=== PATIENT | male | born 1950 | race Caucasian/White ===

== ENCOUNTER → 2021-09-23 | Outpatient (CLI) | payer MEDICARE ==
--- NOTE | 2021-09-25 09:13 | CT ---
EXAMINATION TYPE: CT abdomen pelvis wo con DATE OF EXAM: 09/23/2021 COMPARISON: None HISTORY: 70-year-old male N20.[address] DLP: 567.60 mGycm. Automated exposure control for dose reduction was used. TECHNIQUE: Contiguous axial scanning of the abdomen and pelvis without IV contrast. Coronal and sagit irma reconstructions performed. FINDINGS: Heart normal size without pericardial effusion. Mitral annular calcifications are demonstrated. Tiny calcified granuloma right base. No pleural effusion. Lack of IV contrast and some strandy edematous change throughout the subcutaneous adipose layer and i ntra-abdominal fat limits evaluation. There is a small hiatal hernia. There are postsurgical changes just below the GE junction that may re late to Linda-en-Y gastric bypass but this requires further clinical correlation. Unable to exclude scattered mild wall thickening throughout jejunal loops. Some mottled debris is pre sent within some of the jejunal loops, for example, axial image 51. Noncontrast appearance of the liver shows no gross abnormality. Gallbladder not visualized, probably surgically absent. Some punctate calcifications at the pancreatic head level. There is some areas of calcification at th e level of the pancreatic tail with slightly bulbous configuration measuring 3.6 x 2.6 cm. This may r eflect tortuous splenic artery. Unable to entirely exclude partially calcified lobulated mass of the pancreatic tail. Follow-up is recommended. Adrenal glands and spleen show no gross abnormality. There are approximately 7 nonobstructive left renal calculi, largest measuring 1 cm. There are approximately nonobstructive right renal calculi, largest measuring 9 mm. A 1.2 cm hypodensity lateral mid pole right kidney inadequately characterized. Reassess at follow-up. Axial image 56 and coronal image 64. No hydronephrosis is seen. Small fatty hernia. Moderate to large stool burden. No clear perisplenic inflammatory change. Bladder is urine distended. Small 4 mm dependent bladder calculus. Prostate gland is estimated at 5.4 cm wide with central prosthetic calcifications. Limited visualization of pelvic structures due to ex tensive streak and beam hardening artifact relating to the patient's bilateral total hip thoracoplast y is. Bones: Bilateral total hip arthroplasties. Osteitis pubis. Heterotopic ossification about the greater trochanters relating to the gluteal insertions. Hypertrophic facet arthropathy throughout the lumbar spine. Baastrup's disease. Degenerative grade 1 anterolisthesis L4-L5. Moderate to advanced degenerative disc disease L5-S1 and moderate at L2-L3. IMPRESSION: 1. Bilateral nonobstructive nephrolithiasis measuring up to 1 cm on the left and 9 mm on the right. Small 4 mm dependent bladder calculus. 2. A vague 1.2 cm hypodensity in the lateral right kidney mid pole is inadequately characterized. Ma y represent a small cyst. Three-month follow-up CT to exclude a small early mass. 3. Lobulated, partially calcified area at the pancreatic tail measuring 3.6 x 2.6 cm. This may refle ct an underlying tortuous splenic artery. Unable to entirely exclude a mass of the pancreatic tail th ough the former is favored. Recommend follow-up CT in 3 months utilizing IV contrast to further asses s. 4. Mild generalized anasarca change. Correlate for third spacing or fluid overload state. 5. Small hiatal hernia. Postsurgical changes below the GE junction likely relating to a Linda-en-Y ga stric bypass. Clinically correlate. 6. Mildly thickened jejunal loops. Consider enteritis. There may be some stasis given mottled debris within the jejunum versus a recent fiber food bolus. Clinically correlate. 7. Moderate to large stool burden, possible constipation. Clinically correlate.
== END | disposition home or self-care (01) ==
LOC: RADCTMAIN 15:13
PROVIDERS: ATTEND Urology
DX: N20.0 Calculus of kidney (principal); N21.0 Calculus in bladder; K86.89 Other specified diseases of pancreas; K59.89 Other specified functional intestinal disorders
CPT/HCPCS: 74176

== ENCOUNTER → 2022-08-25 | Outpatient (CLI) | payer MEDICARE ==
[2022-08-25 13:00] VITALS: BP 115/72; PULSE 77; RESP 18; TEMP 97.9
--- NOTE | 2022-08-25 14:40 | P.PAINPG ---
Objective - Vital Signs Vital signs: Vital Signs Temp 97.9 F 08/25/22 12:50 Pulse 77 08/25/22 12:50 Resp 18 08/25/22 12:50 BP 115/72 08/25/22 12:50 Pulse Ox 96 08/25/22 12:50 FiO2 PQRS Measure Charge Sheet Mode of Arrival: Ambulatory Comment: HISTORY OF PRESENT ILLNESS: 71 yr old as a referral from Dr Childress presents today w severe and chronic LBP secondary to DDD, spondylosis and facet arthropathy without myelopathy for evaluation. Pt states pain level is at /10 in intensity, constant, localized in the mid to lower lumbar spine, achy in character w shooting pain towards . Pain is provoked by over actrivity throughout the day. Pain is alleviated by PT years ago, chirproactic treatments x 1 yr 2 yrs ago, alternate heat & ice which were ineffective, meds (Ibu, Tyl), repositioning and rest. PMH: HTN, Hyperlipidemia, BPH, IDDM, Pancreatitis (1993) PSH: BL L3-L5 RFA (February 2022), LESIs (Jun 2022), CESIs (2018), RLE Fx (1965), Nephrolithiasis (1983), Strangulated Hernia Repair (2020) SH: Retired w experience. Negative x 3. FH: Non contributory All: NKDA Meds: See list REVIEW OF ORGAN SYSTEMS: CONSTITUTIONAL: No fevers or chills. No recent weight loss. NEUROLOGICAL: + numbness and tingling along the distal extremities. No seizure disorders or headaches. MUSCULOSKELETAL: + pain PSYCHIATRIC: Denies current depression or suicidal thoughts. Physical Examinations : Constitutional : Cooperative , not in acute distress . Neurologic : Cranial nerve II to XII intact. No focal neurological deficits. Psychiatric : alert & oriented x 3. Matching mood & appropriate affect. Judgment & insight intact. Musculoskeletal : Cervical Spine Motor strength in the deltoid and biceps: Normal right side. Normal Left side Motor strength biceps and the wrist extensors: Normal right side . Normal left side Motor strength in the triceps muscle: Normal right side. Normal left side Deep tendon reflexes: Normal at the biceps. Normal at Brachioradialis. Normal at triceps Vertebral body tenderness to deep palpation over Cervical facet loading test: positive bilaterally Spurling test: positive bilaterally Neck distraction test: positive bilaterally Ellie sign: positive bilaterally Lumbar spine Motor strength lower extremities ,thigh and legs 5/5 Right side , 5/5 Left side Deep tendon reflexes : Normal Knee Jerk. Normal Ankle Jerk Vertebral body tenderness over L4 Lumbar facet Loading Test: positive Right / positive Left Range of motion of the lumbar spine Flexion 30 degrees, extension 10 degrees Straight Leg Raise test: Left/ Right positive at degree Escobar test: positive right / positive left. Severe tenderness over the Sacroiliac joint on the Right / Left sides Gaenslen test: positive bilaterally Seated flexion test: positive bilaterally. Sacral spine : Severe tenderness over the Sacroiliac joint: right side / left side Range of motion: Flexion of the lumbar spine <60 degrees Range of motion: Extension of the lumbar spine <20 degrees Gaenslen's Test positive Casa's Test positive Escobar test: positive right side / left side Thigh Thrust Test Sacral Thrust Test Imaging: X-ray of the lumbosacral spine from 03/19/19 reviewed Assessment/ Plan : Lumbar DDD Need records from Dr Childress's office. Pt had an RFA in February 2022 so were under the strong belief that there is an MRI of the lumbar spine completed. Otherwise, recommendation of MRI without contrast of the lumbar spine re: M51.36 May return to clinic within 2 wks for a re evaluation. Risks, benefits of procedure discussed and patient verbalized understanding. Admits to aspirin or anti- coagulant use or medical history of diabetes. P rotocol for discontinuation/ continuation of medications oral procedure discussed. All questions answered. I have spent greater than 30 minutes on patient care today. Dr Malik was available by phone for the evaluation of this patient. The time was used to review the medical records including relevant urine studies and Prescription history (MAPs), review of the available imaging, evaluation and examination of the patient, coordination of care with the medical staff and if applicable referring physicians, as well as creation of the medical record - Pain Location Bilateral Lower Back Non-Pharmacological Interventions: Chiropractic Treatment, Heat, Ice, Inactivity, Massage, Physical Therapy, Position/Reposition Pharmacological Interventions: Block, Epidural, PRN Medication PQRS Narrative: Blood Pressure 115/72 Scale Used Numeric (1 - 10) Hx Alcohol Use (MH) No Controlled Substance Measures - Controlled Substance Measures Is patient prescribed a controlled substance at discharge?: No
== END ==
LOC: PNWHC3 11:56
PROVIDERS: ATTEND Specialist
DX: M51.36 Other intervertebral disc degeneration, lumbar region (principal); E11.9 Type 2 diabetes mellitus without complications; Z79.01 Long term (current) use of anticoagulants; Z79.4 Long term (current) use of insulin
CPT/HCPCS: 99211

== ENCOUNTER → 2022-09-24 | Outpatient (CLI) | payer MEDICARE | LOC: PNWHC3 12:45 | PROVIDERS: ATTEND Specialist | DX: M47.816 Spondylosis without myelopathy or radiculopathy, lumbar region (principal) | CPT/HCPCS: 99211 ==

== ENCOUNTER 2022-11-07 07:32 | Day surgery (SDC) | payer MEDICARE ==
[~2022-11-07 07:32] MED LIST: LACTATED RINGERS 1,000 ML IV SCH; LIDOCAINE 1% (10MG/ML) FOR IV START INTRADERMA PRN
[2022-11-07 08:05] VITALS: RESP 16
[2022-11-07 08:07] LABS: Glucose,Whole Blood 153 mg/dL (70-110)
[2022-11-07] MEDS ORDERED: fentaNYL (PF) 50 MCG/ML 2 ML AMP ONE (08:24)
[2022-11-07] MEDS ORDERED: MIDAZOLAM 2 MG/2 ML VIAL ONE (08:24)
--- NOTE | 2022-11-07 08:53 | P.PCN ---
Date of Procedure: 11/07/22 Procedure(s) Performed: PREOPERATIVE DIAGNOSIS: 1-Lumbar Spondylosis with Facet Arthropathy without myelopathy. 2- Lumber degenerative disc disease. POSTOPERATIVE DIAGNOSIS: 1- Lumbar Spondylosis with Facet Arthropathy without myelopathy. 2- Lumber degenerative disc disease. PROCEDURES :Bilateral Radiofrequency thermocoagulation, L3 , L4 , and L5 medial branch, with fluoroscopic guidance (fluoroscopy images available in the radiology department) ( to denervate the facet joint at bilateral L4-5 ,and L5-S1 levels ). ANESTHESIA: Monitored anesthesia care as per anesthesia department . EBL: Minimal PROCEDURE INDICATION: The patient with low back pain secondary to lumbar facet arthropathy who had more than 50% relief of her pain with previous diagnostic lumbar medial branch block with bupivacaine. PROCEDURE DESCRIPTION / TECHNIQUE: The patient was seen and identified in the preoperative area. Risks, benefits, complications, including but not limited to risk of infection ,bleeding , allergic reactions to the medications and no complete pain releife , and alternatives were discussed with the patient, the patient agreed to proceed with the procedure and signed the consent. IV was started. Vital signs remained stable throughout the procedure. Patient was taken to the OR and time out was completed. The patient was placed in the prone position on the procedure table. The lumber area was prepped and draped in the usual sterile fashion. . Vital signs were closely monitored during the procedure .IV sedation was used during the procedure to decrease patients anxiety. Using AP and then oblique fluoroscopy, the ``eye of the Juan Jose dog brandon esponding to the connection between the superior and transverse articular processes of right L3, L4, and L5 were identified, marked, and localized with 1% lidocaine. Subsequently, a [id number] radiofrequency cannula with a 10- mm active tip was advanced guided by fluoroscopy to each of the``eyes of the Juan Jose dog at right L3, L4, and L5. Each site then underwent sensory testing at 50 Hz and 0 to 1 volt and motor testing at 2.5 Hz and 0 to 3 volt with local stimulation, but no radicular symptoms down the legs. Thereafter each sites underwent radiofrequency thermocoagulation at 80 degrees celsius for 90 seconds after injecting 0.5 ml of PF Ropivacaine 1ml, then after the thermocoagulation done , 1 ml of the block solution containing Depo-Medrol 20 mg and 3 ml of Ropivacaine 0.5% was injected at the right L3 , L4 , and L5 , levels after negative aspiration of CSF and blood and with no paresthesias. Cannulas were retracted while injecting lidocaine 1% until the needle is out. The same procedure was repeated at the level of Left L3, L4, and L5 levels. At the end of the procedure, the skin was cleansed and bandages were applied. COMPLICATIONS: No acute complications. DISPOSITION / PLANS: The patient was placed in a supine position and transferred to the recovery area in a stable condition for observation and was discharged from the recovery room after meeting discharge criteria. Home discharge instructions given to the patient by the staff. The patient was reexamined prior to discharge. The patient will schedule a follow up in the clinic in 2-4 weeks.
--- NOTE | 2022-11-07 08:57 | FL ---
EXAMINATION TYPE: FL guided pain mgmt statistic DATE OF EXAM: 11/07/2022 CLINICAL HISTORY: Low back pain. TECHNIQUE: Fluoroscopy. COMPARISON: None. FINDINGS: Fluoroscopic guidance was provided during pain relief procedure performed by Dr. Malik . A total of 21 seconds of fluoroscopic time was utilized during the procedure and six spot images a re acquired. Images acquired shows needle localization at several levels in the lumbar spine. IMPRESSION: As Above.
[2022-11-07] MEDS ORDERED: IV FLUID CONTINUATION 1,000 ML IV ONE (08:58)
[2022-11-07 09:25] LABS: Glucose,Whole Blood 143 mg/dL (70-110)
[2022-11-07 09:39] VITALS: BP 92/33; PULSE 75
== END 2022-11-07 09:52 | disposition home or self-care (01) ==
LOC: ORPAIN 07:32
PROVIDERS: ATTEND Specialist
DX: M51.36 Other intervertebral disc degeneration, lumbar region (principal); M47.816 Spondylosis without myelopathy or radiculopathy, lumbar region; E78.5 Hyperlipidemia, unspecified; I10 Essential (primary) hypertension; E11.9 Type 2 diabetes mellitus without complications; N40.0 Benign prostatic hyperplasia without lower urinary tract symptoms; K21.9 Gastro-esophageal reflux disease without esophagitis; Z88.6 Allergy status to analgesic agent; Z88.5 Allergy status to narcotic agent; Z79.84 Long term (current) use of oral hypoglycemic drugs; Z79.4 Long term (current) use of insulin; Z79.899 Other long term (current) drug therapy
CPT/HCPCS: 64635; 64636 ×2; J2250; J3010

== ENCOUNTER → 2023-01-27 | Outpatient (CLI) | payer MEDICARE ==
[2023-01-27 16:17] LABS: African American GFR (CKD) 63.6 (60.0-200.0); BUN/Creat Ratio 19.62 Ratio (12.00-20.00); Blood Urea Nitrogen 25.5 mg/dL (9.0-27.0); Calcium 9.3 mg/dL (8.7-10.3); Non-African American GFR(CKD) 54.9 (60.0-200.0)
[2023-01-27 16:28] LABS: Basophils # (A) 0.01 X 10*3/uL (0.00-0.10); Basophils % (A) 0.1 %; Eosinophils # (A) 0.04 X 10*3/uL (0.04-0.35); Eosinophils % (A) 0.5 %; HCT 37.5 % (39.6-50.0); HGB 11.8 g/dL (13.0-17.0); Immature Grans, Automated 0.5 %; Lymphocytes # (A) 1.21 X 10*3/uL (0.90-5.00); Lymphocytes % (A) 15.9 %; MCH 31.6 pg (27.0-32.0); MCHC 31.5 g/dL (32.0-37.0); MCV 100.5 fL (80.0-97.0); Mean Platelet Volume 9.5 fL (9.5-12.2); Monocytes # (A) 0.39 X 10*3/uL (0.20-1.00); Monocytes % (A) 5.1 %; NRBC Per 100 WBC 0 /100 WBCS (0.0-0.0); Neutrophils # (A) 5.91 X 10*3/uL (1.80-7.70); Neutrophils % (A) 77.9 %; Platelet Count 287 X 10*3/uL (140-440); RBC 3.73 X 10*6/uL (4.40-5.60); RDW 13.5 % (11.5-14.5)
== END | disposition home or self-care (01) ==
LOC: LABPAT 10:45
PROVIDERS: ATTEND Urology
DX: Z01.812 Encounter for preprocedural laboratory examination (principal); N20.0 Calculus of kidney; N20.1 Calculus of ureter
CPT/HCPCS: 80048; 85025

== ENCOUNTER 2023-02-05 05:47 | Day surgery (SDC) | payer MEDICARE ==
[2023-01-29 09:52] VITALS: BMI 28.1
--- NOTE | 2023-02-04 21:16 | P.GSHP ---
History of Present Illness H&P Date: 02/04/23 Chief Complaint: Left flank pain The patient is a 72-year-old white male with a history of calcium oxalate monohydrate urolithiasis. 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 The following month, he was admitted with left hydronephrosis due to a 9 mm left proximal ureteral calculus. Multiple right renal calculi measuring up to 8 mm in size were seen. Urine and blood cultures showed Staphylococcus, and he was treated with antibiotics. He now comes for ureteroscopic removal of his calculi. - Genitourinary (Male) Genitourinary: Reports flank pain, Reports kidney stones Past Medical History Past Medical History: Diabetes Mellitus, GERD/Reflux, Hyperlipidemia, Hypertension, Osteoarthritis (OA), Prostate Disorder Additional Past Medical History / Comment(s): seasonal allergies, hx of pancreatitis from cholecystitis, hx c-diff 2020., ddd with low back pain, anemia., kidney stones. History of Any Multi-Drug Resistant Organisms: None Reported Date of last positivie culture/infection: 2020 MDRO Source:: stool Past Surgical History: Cholecystectomy, Joint Replacement Additional Past Surgical History / Comment(s): bilateral total hips, right total knee, left shoulder replaced., incisional hernia repair ., left cataract, hernia mesh removed and replaced., pain procedures for back pain., cystoscopy with left ureteral stent. Past Anesthesia/Blood Transfusion Reactions: Postoperative Nausea & Vomiting (PONV) Additional Past Anesthesia/Blood Transfusion Reaction / Comment(s): morphine, demerol, opiates cause nausea/vomiting Past Psychological History: No Psychological Hx Reported Smoking Status: Former smoker Past Alcohol Use History: None Reported Additional Past Alcohol Use History / Comment(s): smoked years ago for short time while in the service. Past Drug Use History: None Reported - Past Family History Mother Family Medical History: CVA/TIA, Myocardial Infarction ([place]) Additional Family Medical History / Comment(s): smoker Father Family Medical History: Cancer Additional Family Medical History / Comment(s): leukemia Medications and Allergies Home Medications Medication Instructions Recorded Confirmed Type Dapagliflozin Propanediol [Farxiga] 5 mg PO DAILY 11/04/22 01/29/23 History Rosuvastatin Calcium 10 mg PO DAILY 11/04/22 01/29/23 History Semaglutide [Rybelsus] 7 mg PO DAILY 11/04/22 01/29/23 History Tamsulosin [Flomax] 0.4 mg PO HS 11/04/22 01/29/23 History lisinopriL [Zestril] 5 mg PO DAILY 11/04/22 01/29/23 History Atomoxetine HCl [Strattera] 60 mg PO DAILY 12/19/22 01/29/23 History Ferrous Sulfate [Iron (65 MG 325 mg PO DAILY 12/19/22 01/29/23 History Elemental)] Fish Oil(Unknown Dose) 1 cap PO DAILY 12/19/22 01/29/23 History Vitamin D(Unknown Dose) 1 tab PO DAILY 12/19/22 01/29/23 History Vitamin E(Unknown Dose) 1 tab PO DAILY 12/19/22 01/29/23 History Acetaminophen Tab [Tylenol] 650 mg PO Q6HR PRN tab 12/21/22 01/29/23 Rx Calcium (Unknown Dose) 1 dose PO DAILY 01/29/23 History INSULIN LISPRO (For Pump) [humaLOG 0 units SQ-PUMP CONTINUOUS 01/29/23 01/29/23 History (For Pump)] Ketorolac [Toradol] 10 mg PO Q6HR PRN 01/29/23 01/29/23 History Pediatric Multivitamin No.30 1 tab PO DAILY 01/29/23 01/29/23 History [Multivitamin Children's Gummies] Testosterone 1 dose IM Q15D 01/29/23 History Vitamin B (Unknown Dose) 1 dose PO DAILY 01/29/23 History Vitamin C (Unknown Dose) 1 dose PO DAILY 01/29/23 History Vitamin C/Biotin [Hair, Skin and 1 tab PO DAILY 01/29/23 01/29/23 History Nails Chew] Allergies Allergy/AdvReac Type Severity Reaction Status Date / Time codeine Allergy Itching Verified 01/29/23 08:54 indomethacin [From Indocin] Allergy very Verified 01/29/23 08:54 anxious felt like he was dying naproxen [From Naprosyn] Allergy renal Verified 01/29/23 08:54 bleeding Surgical - Exam - General well developed, well nourished, no distress - Respiratory normal respiratory effort - Abdomen Abdomen: soft, non tender, no guarding, no rigid, no rebound - Genitourinary normal penis with no external lesions, testicles non-tender - Psychiatric oriented to time, oriented to person, oriented to place, speech is normal, memory intact Results - Imaging CT scan - abdomen: report reviewed, image reviewed Assessment and Plan Assessment: The patient has a large left proximal ureteral calculus as well as right renal calculi. Alternative treatment options were reviewed with him. He has elected to undergo ureteroscopic removal of this calculi. (1) Ureteral stone with hydronephrosis Status: Acute Code(s): N13.2 - HYDRONEPHROSIS WITH RENAL AND URETERAL CALCULOUS OBSTRUCTION SNOMED Code(s): 54612249 (2) Calculus of ureter Status: Acute Code(s): N20.1 - CALCULUS OF URETER SNOMED Code(s): 06399332 (3) Calculus of kidney Status: Acute Code(s): N20.0 - CALCULUS OF KIDNEY SNOMED Code(s): 46600198 Plan: Cystoscopy, left ureteral stent removal, bilateral ureteroscopy with Holmium laser lithotripsy and stone basketing, right ureteral stent insertion, possible left ureteral stent replacement. The procedure has been reviewed in detail with the patient. He has been made aware of potential risks, which include anesthesia, bleeding, infection, ureteral injury, and inability to successfully remove the calculi. He is aware of the possible need for a secondary procedure.
[~2023-02-05 05:47] MED LIST changes: -LIDOCAINE 1% (10MG/ML) FOR IV START INTRADERMA PRN; +ONDANSETRON 4 MG/2 ML VIAL IVP ONE
--- NOTE | 2023-02-05 06:30 | XR ---
EXAMINATION TYPE: XR KUB DATE OF EXAM: 02/05/2023 6:12 AM CLINICAL HISTORY: Bilateral renal calculi. TECHNIQUE: Two supine KUB images of the abdomen are obtained. COMPARISON: CT abdomen and pelvis December 19, 2022. FINDINGS: Multiple small right renal calculi arms less well-seen as obscured by overlying bowel gas. There is new double-J left ureteral stent. There is progression of 11 mm calculus now within distal u reter over the left pelvis. Metallic hardware from bilateral hip surgery is partially imaged. Surgical clips epigastric region re demonstrated. IMPRESSION: As above.
[2023-02-05] MEDS ORDERED: HYDROmorphone 0.5 MG/0.5 ML SYRINGE IVP PRN (07:00)
[2023-02-05] MEDS ORDERED: fentaNYL (PF) 50 MCG/ML 2 ML AMP IV PRN (07:00)
[2023-02-05 07:04] LABS: Glucose,Whole Blood 180 mg/dL (70-110)
[2023-02-05] MEDS ORDERED: ONDANSETRON 4 MG/2 ML VIAL ONE (07:42)
[2023-02-05] MEDS ORDERED: LIDOCAINE 2% INJ 20 MG/ML (2 ML VIAL) ONE (07:42)
[2023-02-05] MEDS ORDERED: HYDROmorphone (PF) 1 MG/ML ONE (07:42)
[2023-02-05] MEDS ORDERED: MIDAZOLAM 2 MG/2 ML VIAL ONE (07:42)
[2023-02-05] MEDS ORDERED: PROPOFOL 10 MG/ML 20 ML VIAL IV ONE (07:42)
[2023-02-05] MEDS ORDERED: PHENYLEPHRINE-0.9% NACL SYG 1,000 MCG/10 ML SYRINGE ONE (07:42)
[2023-02-05] MEDS ORDERED: ACETAMINOPHEN IV (For NPO) 1,000 MG/100 ML VIAL ONE (07:42)
[2023-02-05] MEDS ORDERED: ROCURONIUM 10 MG/ML (5 ML VIAL) IV ONE (07:42)
[2023-02-05] MEDS ORDERED: NEOSTIGMINE 1 MG/ML 10 ML VIAL ONE (07:42)
[2023-02-05] MEDS ORDERED: ePHEDrine 50 MG/ML 1 ML VIAL ONE (07:42)
[2023-02-05] MEDS ORDERED: SUCCINYLCHOLINE CHLORIDE 200 MG/10 ML VIAL IV ONE (07:42)
[2023-02-05] MEDS ORDERED: VASOPRESSIN 20 UNIT/ML 1 ML VIAL ONE (07:42)
[2023-02-05] MEDS ORDERED: KETOROLAC 15 MG/ML 1 ML VIAL ONE (07:42)
[2023-02-05] MEDS ORDERED: LACTATED RINGERS 1,000 ML IV ONE ×2 (09:01→11:17)
[2023-02-05 10:33] VITALS: TEMP 98.2
[2023-02-05 10:49] LABS: Glucose,Whole Blood 215 mg/dL (70-110)
[2023-02-05 11:36] VITALS: RESP 20
--- NOTE | 2023-02-05 11:40 | FL ---
Fluoroscopy History: Removal of calculi Christian renal calculi, removal left stent, right stent placed. 22 sec fl. 2.2168 DAP
[2023-02-05 13:15] VITALS: BP 112/70; PULSE 68
--- NOTE | 2023-02-08 20:33 | P.OP ---
Date of Procedure: 02/08/23 Preoperative Diagnosis: Left ureteral calculus, right renal calculi Postoperative Diagnosis: Same Procedure(s) Performed: Cystoscopy, left ureteral stent removal, bilateral ureteroscopy with Holmium laser lithotripsy and stone basketing, right ureteral stent insertion Anesthesia: ALBANIAA Surgeon: Ilya Christianson Estimated Blood Loss (ml): 10 IV fluids (ml): 1,700 Pathology: other (Calculus fragments, sent for chemical analysis) Condition: stable Disposition: PACU Indications for Procedure: The patient is a 72-year-old white male with a history of calcium oxalate monohydrate urolithiasis. 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 The following month, he was admitted with left hydronephrosis due to a 9 mm left proximal ureteral calculus. Multiple right renal calculi measuring up to 8 mm in size were seen. Urine and blood cultures showed Staphylococcus, and he was treated with antibiotics. A left ureteral stent was placed. He now comes for ureteroscopic removal of his calculi. Operative Findings: Left distal ureteral calculus, fragmented and removed completely. Multiple right renal calculi, fragmented and removed. Description of Procedure: The patient was taken to the operating room and placed in the dorsolithotomy position, with legs supported in Roosevelt stirrups. The external genitalia was prepped and draped sterilely. The urethra would not accommodate the 21-Guyanese Mosley cystoscopic sheath, so [place] sounds were used to dilate the fossa navicularis stricture. The 30 lens was then used to introduce the 21-Guyanese Mosley cystoscopic sheath through the urethra and into the bladder under direct vision. The prostatic urethra showed evidence of mild lateral lobe enlargement. The bladder was examined in its entirety. No abnormalities were seen. Grasping forceps were used to grasp the distal end of the left ureteral stent, which was removed along with the cystoscope. The Mosley semirigid ureteroscope was advanced into the bladder, and the left ureteral orifice was cannulated. The ureteroscope was slowly advanced up to the calculus. A 272 holmium laser probe was passed through the ureteroscope, and lithotripsy was performed. Initially, a dusting mode was utilized. Ultimately, the calculus fragmented and calculus fragments were removed using a 0 tip 1.5- Guyanese nitinol basket. All calculus fragments were removed. Inspection of the ureter showed no residual calculus fragments, and no evidence of ureteral trauma. The cystoscope was replaced into the bladder. A 0.038 inch Glidewire was passed through the cystoscope. The right ureteral orifice was cannulated, and the Glidewire was advanced up to the renal pelvis. The cystoscope was removed, and an 11/13-Guyanese ureteral access catheter was passed over the wire, up to the proximal ureter. The flexible ureteroscope was then passed through the ureteral access catheter sheath and advanced under direct vision up to the right renal pelvis. Each calyx was examined. Calculi were seen in multiple calyces. The 272 micron Holmium laser probe was passed through the ureteroscope, and lithotripsy was performed. All visible calculi were fragmented, largely utilizing a dusting mode. Several small calculi were identified within a lower pole calyx, and these were removed using the nitinol basket. Pullout ureteroscopy showed no evidence of ureteral trauma. The Glidewire was advanced up to the right renal pelvis, and after removing the ureteroscope the Glidewire was backloaded into the cystoscope, which was passed into the bladder. A 26 cm, 6-Guyanese double-J ureteral stent was placed over the wire. Proper stent positioning was verified fluoroscopically and endoscopically. The bladder was emptied and the cystoscope removed. The patient tolerated the procedure well and was taken to the recovery room in stable condition. [facility] [place] [employer] Report: Procedure Acuity: Elective Stone Size and Location: 1 cm, left distal ureter. Multiple right renal calculi measuring up to 8 mm. Ureteral Dilation: No Ureteral Access Sheath Used: Yes Stone Sent for Analysis: Yes All Stones/Fragments Were Removed with a Basket: No Complications: No Preoperative Antibiotics Given: Yes Stent Placed: Yes If Stent Placed, Was String Left Attached: No If Stent Placed, When is it to be Removed: 2-3 weeks Discharge Medications: Toradol, tamsulosin
== END 2023-02-05 13:30 | disposition home or self-care (01) ==
LOC: OR 05:47
PROVIDERS: ATTEND Urology
DX: N20.2 Calculus of kidney with calculus of ureter (principal); E11.9 Type 2 diabetes mellitus without complications; K21.9 Gastro-esophageal reflux disease without esophagitis; E78.5 Hyperlipidemia, unspecified; I10 Essential (primary) hypertension; M19.90 Unspecified osteoarthritis, unspecified site; Z90.49 Acquired absence of other specified parts of digestive tract; Z96.60 Presence of unspecified orthopedic joint implant; Z87.891 Personal history of nicotine dependence; Z82.49 Family history of ischemic heart disease and other diseases of the circulatory system; Z79.84 Long term (current) use of oral hypoglycemic drugs; Z79.1 Long term (current) use of non-steroidal anti-inflammatories (NSAID); Z88.5 Allergy status to narcotic agent; Z79.899 Other long term (current) drug therapy
CPT/HCPCS: 82365; 74018; 52356; C2625; C1769; J2250; J0330; J2710; J0690; J2405; J1170; J0131; J1885; J2370; J2704; J2001

== ENCOUNTER → 2023-03-06 | Outpatient (CLI) | payer MEDICARE ==
--- NOTE | 2023-03-06 11:25 | US ---
EXAMINATION TYPE: US kidneys/renal and bladder DATE OF EXAM: 03/06/2023 COMPARISON: CT dated 12/19/2022. Abdominal x-ray February 05, 2023 CLINICAL INDICATION: Male, 72 years old with history of N13.2 HYDRONEPHROSIS; History of renal stones . EXAM MEASUREMENTS: Right Kidney: 12.1 x 5.5 x 5.7 cm Left Kidney: 10.7 x 5.9 x 6.0 cm Right Kidney: Two stones seen lower pole one measures 1.3 x 0.9 x 0.9 cm and the second measures 0.9 x 0.9 x 1.1 cm. Complex area midpole measures 3.1 x 3.6 x 2.6 cm. Left Kidney: Not well visualized, no hydronephrosis seen. Bladder: Layering sediment noted. Bilateral Jets seen: No Few right-sided renal calculi seen on ultrasound. More numerous right-sided renal calculi noted on re cent CT. There is thin walled cyst or cystic lesion that is not completely anechoic measuring 3.6 cm long axis midpole level of right kidney. Corresponding abnormality not clearly seen on noncontrast CT . No left-sided hydronephrosis on current study. Urinary bladder not completely anechoic IMPRESSION: No Hydronephrosis is evident bilaterally on current study.
== END | disposition home or self-care (01) ==
LOC: RADUSWWP 10:13
PROVIDERS: ATTEND Urology
DX: N13.2 Hydronephrosis with renal and ureteral calculous obstruction (principal)
CPT/HCPCS: 76770

== ENCOUNTER → 2023-11-13 | Outpatient (CLI) | payer MEDICARE ==
--- NOTE | 2023-11-13 13:35 | XR ---
EXAMINATION TYPE: XR KUB DATE OF EXAM: 11/13/2023 Comparison: 02/05/2023 Clinical History: 73-year-old male N20.0 CALCULUS OF KIDNEY Findings: Lung bases are clear. Gassy bowel in the midabdomen with a caliber up to 5.8 cm, suspected to represent tortuous colon. The re is moderate to large stool elsewhere throughout the colon. No dilated small bowel loops are seen. Surgical material throughout the abdomen. 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 Supine imaging limited for assessment of free air. Impression: 1. Gassy colon with moderate to large stool. No convincing findings of bowel obstruction. 2. Bowel content largely obscures the renal shadows.
== END | disposition home or self-care (01) ==
LOC: RADXRMAIN 13:08
PROVIDERS: ATTEND Urology
DX: N20.0 Calculus of kidney (principal); K63.89 Other specified diseases of intestine
CPT/HCPCS: 74018